=== PATIENT | male | born 1935 | race Hispanic/Latino ===

== ENCOUNTER 2017-07-11 12:45 | Inpatient (IN) | payer OTHER, MEDICARE ==
--- NOTE | 2017-07-11 13:45 | ED PDOC ---
HPI: General Adult Time Seen by Provider: 07/11/17 12:56 Chief Complaint (Nursing): Flu-like Symptoms Chief Complaint (Provider): Flu-like Symptoms History Per: Patient History/Exam Limitations: no limitations Onset/Duration Of Symptoms: Days (x3 days) Current Symptoms Are (Timing): Still Present Additional Complaint(s): 82 y/o male, brought in by EMS, with hypertension and coronary artery disease presents to the ED complaining of fever, cough, and congestion, onset of 3 days. Patient also reports of having productive cough, body aches, sore throat, and is currently taking over the counter cough medicine. He denies any chest pain, difficulty breathing, sick contact, flu shot, or travel. Of note, the patient reports of having [address]. PCP: Jesus Foster Past Medical History Reviewed: Historical Data, Nursing Documentation, Vital Signs Vital Signs: Last Vital Signs Temp 99.3 F 07/11/17 16:47 Pulse 89 07/11/17 16:47 Resp 16 07/11/17 14:38 BP 101/48 L 07/11/17 16:47 Pulse Ox 94 L 07/11/17 17:19 - Medical History PMH: CAD, HTN - Surgical History Surgical History: Coronary Stent (x3) - Family History Family History: States: Unknown Family Hx - Social History Current smoker - smoking cessation education provided: No Ex-Smoker (has not smoked in the last 12 months): No Alcohol: None Drugs: Denies - Home Medications Home Medications: Ambulatory Orders Medication Instructions Recorded Aspirin [Aspirin Chewable] 81 mg PO DAILY 07/11/17 Atorvastatin [Lipitor] 40 mg PO DAILY 07/11/17 Calcium/Vitamin D [Oyster Shell 2,000 mg PO DAILY 07/11/17 Calcium/Vitamin D 500 mg-200 IU] Clopidogrel [Plavix] 75 mg PO DAILY 07/11/17 Enalapril/Hydrochlorothiazide 1 tab PO DAILY 07/11/17 [Enalapril-Hctz 10-25 mg Tablet] Metoprolol Succinate [Toprol XL] 25 mg PO DAILY 07/11/17 - Allergies Allergies/Adverse Reactions: Allergies Allergy/AdvReac Type Severity Reaction Status Date / Time No Known Allergies Allergy Verified 07/11/17 12:54 Review of Systems ROS Statement: Except As Marked, All Systems Reviewed And Found Negative Constitutional: Positive for: Fever, Other (body aches) ENT: Positive for: Throat Pain (sore throat) Cardiovascular: Negative for: Chest Pain Respiratory: Positive for: Cough (productive) Physical Exam - Reviewed Nursing Documentation Reviewed: Yes Vital Signs Reviewed: Yes - Physical Exam Appears: Positive for: Non-toxic, No Acute Distress Head Exam: Positive for: ATRAUMATIC Skin: Positive for: Normal Color, Warm Eye Exam: Positive for: Normal appearance, EOMI, PERRL ENT: Positive for: Normal ENT Inspection Neck: Positive for: Normal, Painless ROM, Supple Cardiovascular/Chest: Positive for: Tachycardia. Negative for: Murmur Respiratory: Positive for: Normal Breath Sounds. Negative for: Respiratory Distress Gastrointestinal/Abdominal: Positive for: Normal Exam, Soft. Negative for: Tenderness Back: Positive for: Normal Inspection Extremity: Positive for: Normal ROM. Negative for: Pedal Edema, Deformity Neurologic/Psych: Positive for: Alert, Oriented. Negative for: Motor/Sensory Deficits - Laboratory Results Result Diagrams: 07/11/17 14:22 07/11/17 14:22 - ECG O2 Sat by Pulse Oximetry: 94 (RA) Pulse Ox Interpretation: Normal Medical Decision Making Medical Decision Making: Time: --13:12 Impression: --Upper Respiratory Infection Differential: --Influenza, Pneumonia, and Strep Throat Plan: --EKG --Chest X-ray --Acetaminophen 650mg PO Reassess CXR reviewed: RLL infiltrate. Labs consistent with SIRS. Dx Sepsis, CAP Admission criteria: High risk with high CURB 65 score and threat to life. Requires admission for supplemental oxygen and IV antibiotics. Scribe Attestation: Documented by Henry Welch acting as a scribe for Dede Ramos MD. Disposition - Clinical Impression Clinical Impression: Pneumonia, Sepsis - Patient ED Disposition Is Patient to be Admitted: Yes Discussed With : Chris Draper Doctor Will See Patient In The: Hospital Counseled Patient/Family Regarding: Studies Performed, Diagnosis - Disposition Disposition Time: 16:20 Condition: FAIR - Pt Status Changed To: Hospital Disposition Of: Inpatient - Admit Certification Admit to Inpatient:: After my assessment, the patient will require hospitalization for at least two midnights. This is because of the severity of symptoms shown, intensity of services needed, and/or the medical risk in this patient being treated as an outpatient. - POA Present On Arrival: None Curb-65 Severity Score - CURB-65 Severity Score Confusion: No Bun >19mg/dl (>7mmol/L): No Respiratory Rate greater than/equal to 30: Yes Systolic BP <90 or Diastolic BP less than/equal 60mmHg: No Age >64: Yes Curb-65 Score: 2 Percentage 30-day mortality: 6.8%
[2017-07-11] MEDS ORDERED: Azithromycin 500 MG in Sodium Chloride 0.9% 250 ML IVPB STA (13:57)
--- NOTE | 2017-07-11 14:22 | RAD ---
HISTORY: fever cough COMPARISON: No prior. TECHNIQUE: Chest PA and lateral FINDINGS: LUNGS: Chronic hyperinflation is appreciated. No focal infiltrate is identified. PLEURA: No significant pleural effusion identified. No pneumothorax apparent. CARDIOVASCULAR: Prominent pulmonary arteries are noted suggesting pulmonary arterial hypertension. There is calcific atherosclerotic disease of the aorta. Heart is normal in size. No CHF is noted. OSSEOUS STRUCTURES: No acute fractures. VISUALIZED UPPER ABDOMEN: Normal. OTHER FINDINGS: None. IMPRESSION: Chronic hyperinflation without focal infiltrate or CHF.
[2017-07-11 14:24] LABS: VENOUS BLOOD GAS BASE EXCESS 5.3 mmol/L (0.0-2.0); VENOUS BLOOD GAS PCO2 49 mmHg (40-60); VENOUS BLOOD GAS PO2 27 mm/Hg (30-55); VENOUS BLOOD PH 7.41 (7.32-7.43)
[2017-07-11 14:29] LABS: BASO # 0.1 K/uL (0.0-0.2); BASO % 0.9 % (0.0-2.0); EOS # 0.1 K/uL (0.0-0.7); EOS % 0.5 % (0.0-4.0); HEMOGLOBIN 11.1 g/dL (12.0-18.0); LYMPH # 0.6 K/uL (1.0-4.3); LYMPH % 3.4 % (20.0-40.0); MEAN CELL VOLUME 91.9 fl (80.0-94.0); MEAN CORPUSCULAR HEMOGLOBIN 30.8 pg (27.0-31.0); MEAN CORPUSCULAR HGB CONC 33.5 g/dL (33.0-37.0); MEAN PLATELET VOLUME 12.9 fl (7.2-11.7); MONO # 1.2 K/uL (0.0-0.8); MONO % 7.2 % (0.0-10.0); NEUT # 14.6 K/uL (1.8-7.0); PLATELET COUNT 91 K/uL (130-400); RBC 3.61 Mil/uL (4.40-5.90); RED CELL DISTRIBUTION WIDTH 15.5 % (11.5-14.5); WHITE BLOOD COUNT 16.6 K/uL (4.8-10.8)
[2017-07-11 14:45] LABS: BLOOD UREA NITROGEN 27 mg/dl (9-20); CALCIUM 9.3 mg/dL (8.4-10.2); GFR AFRICAN-AMERICAN > 60; GFR NON-AFRICAN AMERICAN 58
[2017-07-11] MEDS ORDERED: Sodium Chloride 0.9% 1,000 ML IV STA ×2 (15:09→16:52)
[2017-07-11] MEDS ORDERED: Albuterol-Ipratrop 3 mg / 0.5 (3 ml) UD INH STA (15:09)
[2017-07-11 15:26] LABS: BASOPHIL 1 % (0-2); LYMPHOCYTE 5 % (20-50); MONOCYTE 9 % (0-10); NEUTROPHIL 85 % (42-75); TOTAL CELLS COUNTED 100
[2017-07-11 15:27] LABS: ANISOCYTOSIS SLIGHT; HYPOCHROMIC SLIGHT; PLATELET ESTIMATE DECREASED (NORMAL)
[2017-07-11 15:29] LABS: GIANT PLATELETS PRESENT; LARGE PLATELETS PRESENT; OVALOCYTES SLIGHT
[2017-07-11] MEDS ORDERED: Albuterol-Ipratrop 3 mg / 0.5 (3 ml) UD ONE (15:41)
[2017-07-11] MEDS ORDERED: Albuterol-Ipratrop 3 mg / 0.5 (3 ml) UD INH PRN (18:08)
[2017-07-11] MEDS ORDERED: Promethazine DM 6.25 mg-15 mg/5 ml Syrup PO PRN (18:12)
[2017-07-12 06:28] LABS: BASO # 0.1 K/uL (0.0-0.2); BASO % 0.7 % (0.0-2.0); EOS # 0.1 K/uL (0.0-0.7); EOS % 0.9 % (0.0-4.0); HEMOGLOBIN 10.5 g/dL (12.0-18.0); LYMPH # 2.3 K/uL (1.0-4.3); LYMPH % 16.3 % (20.0-40.0); MEAN CELL VOLUME 94.7 fl (80.0-94.0); MEAN CORPUSCULAR HEMOGLOBIN 30.4 pg (27.0-31.0); MEAN PLATELET VOLUME 13.3 fl (7.2-11.7); MONO # 1.2 K/uL (0.0-0.8); MONO % 8.4 % (0.0-10.0); NEUT # 10.5 K/uL (1.8-7.0); NEUT % 73.7 % (50.0-75.0); RBC 3.46 Mil/uL (4.40-5.90); RED CELL DISTRIBUTION WIDTH 15.7 % (11.5-14.5); WHITE BLOOD COUNT 14.3 K/uL (4.8-10.8)
[2017-07-12 06:34] LABS: ALB/GLOB RATIO 1.1 (1.0-2.1); ALBUMIN 3.5 g/dL (3.5-5.0); ALT/SGPT 29 U/L (21-72); AST/SGOT 21 U/L (17-59); BLOOD UREA NITROGEN 24 mg/dl (9-20); CALCIUM 8.6 mg/dL (8.4-10.2); GFR AFRICAN-AMERICAN > 60; GFR NON-AFRICAN AMERICAN 53
--- NOTE | 2017-07-12 08:01 | CP.PCM.HP ---
History of Present Illness - History of Present Illness History of Present Illness: pt admitted for pna w/ elev wbc and fever. at present pt feels better, less weak. no n/v/d. afebrile. cxr noted pt was for cardiac cath at [place] tomorrow. no cp Present on Admission - Present on Admission Any Indicators Present on Admission: No Review of Systems - Constitutional Constitutional: As Per HPI, Fever - Respiratory Respiratory: As Per HPI, Cough, Wheezing, Chest Congestion Past Patient History - Past Social History Smoking Status: Never Smoked - CARDIAC Hx Hypertension: Yes Other/Comment: with stent x 3 - MUSCULOSKELETAL/RHEUMATOLOGICAL Hx Falls: No - PSYCHIATRIC Hx Substance Use: No - SURGICAL HISTORY Hx Coronary Stent: Yes (x3) - ANESTHESIA Hx Anesthesia: Yes Hx Anesthesia Reactions: No Meds Allergies/Adverse Reactions: Allergies Allergy/AdvReac Type Severity Reaction Status Date / Time No Known Allergies Allergy Verified 07/11/17 12:54 Physical Exam - Constitutional Appears: Well, Non-toxic, No Acute Distress - Head Exam Head Exam: ATRAUMATIC, NORMAL INSPECTION, NORMOCEPHALIC - Eye Exam Eye Exam: EOMI, Normal appearance, PERRL Pupil Exam: NORMAL ACCOMODATION, PERRL - ENT Exam ENT Exam: Mucous Membranes Moist, Normal Exam - Neck Exam Neck exam: Positive for: Normal Inspection - Respiratory Exam Respiratory Exam: Clear to Auscultation Bilateral, NORMAL BREATHING PATTERN - Cardiovascular Exam Cardiovascular Exam: REGULAR RHYTHM, RRR, +S1, +S2 - GI/Abdominal Exam GI & Abdominal Exam: Normal Bowel Sounds, Soft. absent: Tenderness - Extremities Exam Extremities exam: Positive for: full ROM, normal capillary refill, normal inspection, pedal pulses present - Back Exam Back exam: NORMAL INSPECTION - Neurological Exam Neurological exam: Alert, CN II-XII Intact, Normal Gait, Oriented x3, Reflexes Normal - Psychiatric Exam Psychiatric exam: Normal Affect, Normal Mood - Skin Skin Exam: Dry, Intact, Normal Color, Warm Results - Vital Signs Recent Vital Signs: Last Vital Signs Temp 98.7 F 07/12/17 00:49 Pulse 84 07/12/17 00:30 Resp 19 07/12/17 00:30 BP 114/64 07/12/17 00:30 Pulse Ox 95 07/12/17 00:30 - Labs Result Diagrams: 07/12/17 06:05 07/12/17 06:05 Labs: Laboratory Results - last 24 hr 07/11/17 07/11/17 07/11/17 13:20 14:15 14:22 WBC RBC Hgb Hct MCV MCH MCHC RDW Plt Count MPV Neut % (Auto) Lymph % (Auto) [place] % (Auto) Eos % (Auto) Baso % (Auto) Neut # Lymph # [place]vier # Eos # Baso # Neutrophils % (Manual) Lymphocytes % (Manual) Monocytes % (Manual) Basophils % (Manual) Platelet Estimate Large Platelets Giant Platelets Hypochromasia (manual) Anisocytosis (manual) Ovalocytes pO2 27 L VBG pH 7.41 VBG pCO2 49 VBG HCO3 27.8 VBG Total CO2 32.6 H VBG O2 Sat (Calc) 62.2 VBG Base Excess 5.3 H VBG Potassium 4.4 Sodium 136.0 140 Chloride 104.0 101 Glucose 116 H Lactate 1.7 FiO2 21.0 Potassium 4.4 Carbon Dioxide 30 Anion Gap 13 BUN 27 H Creatinine 1.2 Est GFR ( Amer) > 60 Est GFR (Non-Af Amer) 58 Random Glucose 112 H Calcium 9.3 Total Bilirubin AST ALT Alkaline Phosphatase Total Protein Albumin Globulin Albumin/Globulin Ratio Venous Blood Potassium 4.4 Influenza Typ A,B (EIA) Negative for flu a/b 07/11/17 07/12/17 07/12/17 14:22 06:05 06:05 WBC 16.6 H 14.3 H RBC 3.61 L 3.46 L Hgb 11.1 L 10.5 L Hct 33.2 L 32.8 L MCV 91.9 94.7 H D MCH 30.8 30.4 MCHC 33.5 32.0 L RDW 15.5 H 15.7 H Plt Count 91 L 92 L MPV 12.9 H 13.3 H Neut % (Auto) 88.0 H 73.7 Lymph % (Auto) 3.4 L 16.3 L Sevier % (Auto) 7.2 8.4 Eos % (Auto) 0.5 0.9 Baso % (Auto) 0.9 0.7 Neut # 14.6 H 10.5 H Lymph # 0.6 L 2.3 Sevier # 1.2 H 1.2 H Eos # 0.1 0.1 Baso # 0.1 0.1 Neutrophils % (Manual) 85 H Lymphocytes % (Manual) 5 L Monocytes % (Manual) 9 Basophils % (Manual) 1 Platelet Estimate Decreased L Large Platelets Present Giant Platelets Present Hypochromasia (manual) Slight Anisocytosis (manual) Slight Ovalocytes Slight pO2 VBG pH VBG pCO2 VBG HCO3 VBG Total CO2 VBG O2 Sat (Calc) VBG Base Excess VBG Potassium Sodium 141 Chloride 102 Glucose Lactate FiO2 Potassium 4.2 Carbon Dioxide 28 Anion Gap 15 BUN 24 H Creatinine 1.3 Est GFR ( Amer) > 60 Est GFR (Non-Af Amer) 53 Random Glucose 102 Calcium 8.6 Total Bilirubin 0.8 AST 21 ALT 29 Alkaline Phosphatase 53 Total Protein 6.7 Albumin 3.5 Globulin 3.1 Albumin/Globulin Ratio 1.1 Venous Blood Potassium Influenza Typ A,B (EIA) Assessment & Plan (1) DVT prophylaxis Assessment and Plan: scd and ae hose asa/plavix lovenox if admitted over 24h Status: Acute (2) Pneumonia Assessment and Plan: rocephin/zithromax duonebs, phenergen am labs noted Status: Acute (3) Sepsis Assessment and Plan: likely early sepsis wbc elev, febrile source-pneumonia Status: Acute Decision To Admit - Pt Status Changed To: Hospital Disposition Of: Inpatient - Admit Certification Admit to Inpatient:: After my assessment, the patient will require hospitalization for at least two midnights. This is because of the severity of symptoms shown, intensity of services needed, and/or the medical risk in this patient being treated as an outpatient. - . Bed Request Type: Med/Surg Admitting Physician: Yfn Nelson
[2017-07-12] MEDS: Azithromycin 500 MG in Sodium Chloride 0.9% 250 ML IVPB SCH (08:35)
[2017-07-12] MEDS: Metoprolol Succinate 25 mg XL Tab PO SCH (08:36)
--- NOTE | 2017-07-12 08:54 | CARD ---
APPROVED REPORT EKG Measurement Heart [id number] <Conclusion> Sinus rhythm with occasional premature ventricular complexes Otherwise normal ECG
[2017-07-12] MEDS: Calcium-Vit D 500 mg-200 Units Tab UD PO SCH (09:35)
[2017-07-12] MEDS ORDERED: Enoxaparin 40 mg Syringe SC SCH (11:30)
[2017-07-12 23:28] VITALS: RESP 20
[2017-07-13 06:33] LABS: HEMOGLOBIN 9.7 g/dL (12.0-18.0); MEAN CELL VOLUME 93.5 fl (80.0-94.0); MEAN CORPUSCULAR HEMOGLOBIN 30.7 pg (27.0-31.0); MEAN CORPUSCULAR HGB CONC 32.8 g/dL (33.0-37.0); RBC 3.15 Mil/uL (4.40-5.90); RED CELL DISTRIBUTION WIDTH 15.6 % (11.5-14.5); WHITE BLOOD COUNT 9.2 K/uL (4.8-10.8)
[2017-07-13 06:55] LABS: BLOOD UREA NITROGEN 20 mg/dl (9-20); CALCIUM 8.4 mg/dL (8.4-10.2); GFR AFRICAN-AMERICAN > 60; GFR NON-AFRICAN AMERICAN > 60
--- NOTE | 2017-07-13 07:59 | CP.PCM.DIS ---
Provider - Provider Date of Admission: 07/11/17 16:24 Attending physician: Yfn Nelson MD Time Spent in preparation of Discharge (in minutes): 20 Diagnosis - Discharge Diagnosis (1) DVT prophylaxis Status: Acute (2) Pneumonia Status: Acute (3) Sepsis Status: Acute Hospital Course - Lab Results Lab Results: Micro Results 07/11/17 14:03 Blood Blood Culture - Preliminary NO GROWTH AFTER 24 HOURS 07/11/17 15:33 Blood Blood Culture - Preliminary NO GROWTH AFTER 24 HOURS Most Recent Lab Values WBC 9.2 K/uL (4.8-10.8) 07/13/17 06:05 RBC 3.15 Mil/uL (4.40-5.90) L 07/13/17 06:05 Hgb 9.7 g/dL (12.0-18.0) L 07/13/17 06:05 Hct 29.5 % (35.0-51.0) L 07/13/17 06:05 MCV 93.5 fl (80.0-94.0) 07/13/17 06:05 MCH 30.7 pg (27.0-31.0) 07/13/17 06:05 MCHC 32.8 g/dL (33.0-37.0) L 07/13/17 06:05 RDW 15.6 % (11.5-14.5) H 07/13/17 06:05 Plt Count 67 K/uL (130-400) L D 07/13/17 06:05 MPV 13.3 fl (7.2-11.7) H 07/12/17 06:05 Neut % (Auto) 73.7 % (50.0-75.0) 07/12/17 06:05 Lymph % (Auto) 16.3 % (20.0-40.0) L 07/12/17 06:05 [place] % (Auto) 8.4 % (0.0-10.0) 07/12/17 06:05 Eos % (Auto) 0.9 % (0.0-4.0) 07/12/17 06:05 Baso % (Auto) 0.7 % (0.0-2.0) 07/12/17 06:05 Neut # 10.5 K/uL (1.8-7.0) H 07/12/17 06:05 Lymph # 2.3 K/uL (1.0-4.3) 07/12/17 06:05 [place] # 1.2 K/uL (0.0-0.8) H 07/12/17 06:05 Eos # 0.1 K/uL (0.0-0.7) 07/12/17 06:05 Baso # 0.1 K/uL (0.0-0.2) 07/12/17 06:05 Neutrophils % (Manual) 85 % (42-75) H 07/11/17 14:22 Lymphocytes % (Manual) 5 % (20-50) L 07/11/17 14:22 Monocytes % (Manual) 9 % (0-10) 07/11/17 14:22 Basophils % (Manual) 1 % (0-2) 07/11/17 14:22 Platelet Estimate Decreased (NORMAL) L 07/11/17 14:22 Large Platelets Present 07/11/17 14:22 Giant Platelets Present 07/11/17 14:22 Hypochromasia (manual) Slight 07/11/17 14:22 Anisocytosis (manual) Slight 07/11/17 14:22 Ovalocytes Slight 07/11/17 14:22 pO2 27 mm/Hg (30-55) L 07/11/17 14:15 VBG pH 7.41 (7.32-7.43) 07/11/17 14:15 VBG pCO2 49 mmHg (40-60) 07/11/17 14:15 VBG HCO3 27.8 mmol/L 07/11/17 14:15 VBG Total CO2 32.6 mmol/L (22-28) H 07/11/17 14:15 VBG O2 Sat (Calc) 62.2 % (40-65) 07/11/17 14:15 VBG Base Excess 5.3 mmol/L (0.0-2.0) H 07/11/17 14:15 VBG Potassium 4.4 mmol/L (3.6-5.2) 07/11/17 14:15 Sodium 136.0 mmol/L (132-148) 07/11/17 14:15 Chloride 104.0 mmol/L (98-107) 07/11/17 14:15 Glucose 116 mg/dL (75-110) H 07/11/17 14:15 Lactate 1.7 mmol/L (0.7-2.1) 07/11/17 14:15 FiO2 21.0 % 07/11/17 14:15 Sodium 139 mmol/l (132-148) 07/13/17 06:05 Potassium 3.9 MMOL/L (3.6-5.0) 07/13/17 06:05 Chloride 102 mmol/L (98-107) 07/13/17 06:05 Carbon Dioxide 29 mmol/L (22-30) 07/13/17 06:05 Anion Gap 12 (10-20) 07/13/17 06:05 BUN 20 mg/dl (9-20) 07/13/17 06:05 Creatinine 1.1 mg/dl (0.8-1.5) 07/13/17 06:05 Est GFR ( Amer) > 60 07/13/17 06:05 Est GFR (Non-Af Amer) > 60 07/13/17 06:05 Random Glucose 97 mg/dL (75-110) 07/13/17 06:05 Calcium 8.4 mg/dL (8.4-10.2) 07/13/17 06:05 Total Bilirubin 0.8 mg/dl (0.2-1.3) 07/12/17 06:05 AST 21 U/L (17-59) 07/12/17 06:05 ALT 29 U/L (21-72) 07/12/17 06:05 Alkaline Phosphatase 53 U/L (38-126) 07/12/17 06:05 Total Protein 6.7 G/DL (6.3-8.2) 07/12/17 06:05 Albumin 3.5 g/dL (3.5-5.0) 07/12/17 06:05 Globulin 3.1 gm/dL (2.2-3.9) 07/12/17 06:05 Albumin/Globulin Ratio 1.1 (1.0-2.1) 07/12/17 06:05 Venous Blood Potassium 4.4 mmol/L (3.6-5.2) 07/11/17 14:15 Influenza Typ A,B (EIA) Negative for flu a/b (NEGATIVE) 07/11/17 13:20 Discharge Exam - Head Exam Head Exam: ATRAUMATIC, NORMAL INSPECTION, NORMOCEPHALIC - Eye Exam Eye Exam: EOMI, Normal appearance, PERRL Pupil Exam: NORMAL ACCOMODATION, PERRL - Respiratory Exam Respiratory Exam: Clear to PA & Lateral, NORMAL BREATHING PATTERN, UNREMARKABLE - Cardiovascular Exam Cardiovascular Exam: REGULAR RHYTHM, RRR, +S1, +S2 - GI/Abdominal Exam GI & Abdominal Exam: Normal Bowel Sounds, Soft, Unremarkable - Extremities Exam Extremities exam: full ROM, normal capillary refill, normal inspection, pedal pulses present - Neurological Exam Neurological exam: Alert, CN II-XII Intact, Normal Gait, Oriented x3, Reflexes Normal - Psychiatric Exam Psychiatric exam: Normal Affect, Normal Mood - Skin Skin Exam: Dry, Intact, Normal Color, Warm Discharge Plan - Follow Up Plan Condition: FAIR Disposition: HOME/ ROUTINE Instructions: How To Wash Your Hands (GEN), Pneumonia (GEN) Additional Instructions: pt doing well, no complaints. no f/c, n/v/d. still w/ mild cough. bw noted. hgb and plt around pts baseline. bun/cr normalized. pt requesting to go home. final dx-pna, sirs f/u rmg 2 days,r wiliam prn, meds per med rec
[2017-07-13 08:15] VITALS: BP 147/68; PULSE 82; TEMP 98.7; O2SAT 91
[2017-07-13] MEDS: Metoprolol Succinate 25 mg XL Tab PO SCH (09:13)
[2017-07-13] MEDS: Calcium-Vit D 500 mg-200 Units Tab UD PO SCH (09:13)
[2017-07-13] MEDS: Azithromycin 500 MG in Sodium Chloride 0.9% 250 ML IVPB SCH (10:48)
== END 2017-07-13 12:32 | disposition home or self-care (01) | DRG 195 ==
LOC: H.ER 12:45 → H.ERHOLD 16:24 → H.MEDSURG1 17:43
PROVIDERS: ADMIT Family Medicine; ATTEND Family Medicine
DX: J18.9 Pneumonia, unspecified organism (principal); I10 Essential (primary) hypertension; I25.10 Atherosclerotic heart disease of native coronary artery without angina pectoris; Z95.5 Presence of coronary angioplasty implant and graft

== ENCOUNTER 2017-07-16 08:47 | Inpatient (IN) | payer MEDICARE, OTHER ==
[2017-07-16 09:04] VITALS: BMI 22.8
[2017-07-16] MEDS ORDERED: Albuterol-Ipratrop 3 mg / 0.5 (3 ml) UD INH STA ×3 (09:46→09:49)
[2017-07-16 10:08] LABS: ABG ALLEN TEST YES; ARTERIAL BLOOD GAS O2 SAT 99.3 % (95-98); ARTERIAL BLOOD GAS PCO2 50 mm/Hg (35-45); ARTERIAL BLOOD GAS PH 7.43 (7.35-7.45); ARTERIAL BLOOD GAS PO2 141 mm/Hg (80-100); ARTERIAL BLOOD GAS TCO2 34.7 mmol/L (22-28)
--- NOTE | 2017-07-16 10:10 | ED PDOC ---
HPI: SOB/CHF/COPD Time Seen by Provider: 07/16/17 09:02 Chief Complaint (Nursing): Shortness Of Breath Chief Complaint (Provider): Shortness Of Breath History Per: Patient History/Exam Limitations: no limitations Onset/Duration Of Symptoms: Days Current Symptoms Are (Timing): Still Present Current Respiratory Medications: See Home Med List Additional Complaint(s): 82 year old male presents to the emergency department with a complaint of feeling shortness of breath especially on exertion associated with generalized weakness and some weight loss over the past few weeks. Patient has a past medical history of coronary artery disease (CAD) and was admitted within this facility for pneumonia on 07/11/2017 and discharged home with medication on 03/2018. Reports he cannot catch his breath and admits to not finished prescribed medication that were given to him after he was discharge. Patient was seen by someone at [place] yesterday, 07/15/2017 and given another prescription for Medrol Dose pack but has not started that one either. Denies fever, chills, or chest pain. Past Medical History Reviewed: Historical Data, Nursing Documentation, Vital Signs Vital Signs: Last Vital Signs Temp 98 F 07/16/17 09:11 Pulse 97 H 07/16/17 09:11 Resp 20 07/16/17 09:11 BP 132/67 07/16/17 09:11 Pulse Ox 100 07/16/17 12:19 - Medical History PMH: CAD, HTN, Pneumonia - Surgical History Surgical History: Coronary Stent (x3) - Family History Family History: States: Unknown Family Hx - Social History Current smoker - smoking cessation education provided: No Ex-Smoker (has not smoked in the last 12 months): Yes (30 packs a year) Alcohol: None Drugs: Denies - Home Medications Home Medications: Ambulatory Orders Medication Instructions Recorded Aspirin [Aspirin Chewable] 81 mg PO DAILY 07/11/17 Atorvastatin [Lipitor] 40 mg PO DAILY 07/11/17 Calcium/Vitamin D [Oyster Shell 2,000 mg PO DAILY 07/11/17 Calcium/Vitamin D 500 mg-200 IU] Clopidogrel [Plavix] 75 mg PO DAILY 07/11/17 Enalapril/Hydrochlorothiazide 1 tab PO DAILY 07/11/17 [Enalapril-Hctz 10-25 mg Tablet] Metoprolol Succinate [Toprol XL] 25 mg PO DAILY 07/11/17 Albuterol/Ipratropium [Duoneb 3 3 ml INH RQ4 PRN #100 neb 07/13/17 mg/0.5 mg (3 ml) UD] Amoxicillin/Clavulanate [Augmentin 1 tab PO BID #10 tab 07/13/17 875 MG-125 MG] Azithromycin [Zithromax] 250 mg PO DAILY #3 tab 07/13/17 Promethazine DM [Phenergan DM 5 ml PO Q6 PRN #250 ml 07/13/17 Syrup] - Allergies Allergies/Adverse Reactions: Allergies Allergy/AdvReac Type Severity Reaction Status Date / Time No Known Allergies Allergy Verified 07/11/17 12:54 Review of Systems ROS Statement: Except As Marked, All Systems Reviewed And Found Negative (As per HPI, otherwise negative) Constitutional: Positive for: Weakness (generalized), Weight loss. Negative for : Fever, Chills Cardiovascular: Negative for: Chest Pain Respiratory: Positive for: Shortness of Breath, SOB with Exertion Physical Exam - Reviewed Nursing Documentation Reviewed: Yes Vital Signs Reviewed: Yes - Physical Exam Appears: Positive for: Non-toxic, No Acute Distress Head Exam: Positive for: NORMAL INSPECTION, NORMOCEPHALIC Skin: Positive for: Normal Color, Warm, Dry Cardiovascular/Chest: Positive for: Murmur (S1 S2 systolic murmur). Negative for: Regular Rate, Rhythm Respiratory: Positive for: Decreased Breath Sounds (Bilaterally), Crackles ( faint crackles at the left base), Wheezing (Expiratory whezzing), Other (Mildly tachypneic with moderate labored breathing). Negative for: Normal Breath Sounds Gastrointestinal/Abdominal: Positive for: Normal Exam, Soft. Negative for: Tenderness Extremity: Positive for: Normal ROM. Negative for: Tenderness, Pedal Edema Neurologic/Psych: Positive for: Alert, Oriented (x3) - Laboratory Results Result Diagrams: 07/16/17 09:52 07/16/17 09:52 - ECG O2 Sat by Pulse Oximetry: 100 (Oxygen) Pulse Ox Interpretation: Normal Medical Decision Making Medical Decision Making: Time: 945 Initial Impression: Shortness of breath and chronic obstructive pulmonary disease (COPD) exacerbation Initial Plan: --ABG Shock Panel --EKG --B-Type Natriuretic Peptide --CMP --Troponin I --CBC w. diff --Chest x-ray --Duoneb 3 ml INH --Duoneb 3 ml INH --Duoneb 3 ml INH --Methylprednisolone 125 mg IVP --Reevaluation Time: 951 --Troponin I: < 0.0120 Scribe~Attestation: Documented by Soila Medina, acting as a scribe for Cely Parks MD. Provider Scribe~Attestation: All medical record entries made by the Scribe were at my direction and personally dictated by me. I have reviewed the chart and agree that the record accurately reflects my personal performance of the history, physical exam, medical decision making, and the department course for this patient. I have also personally directed, reviewed, and agree with the discharge instructions and disposition. patient is still tachypnea and labored after IV solumedrol and 3 duonebs. He tried to walk but had dyspnea. Needs to be admitted for steroids and nebs. Case d/w Chris Draper Disposition - Clinical Impression Clinical Impression: COPD exacerbation - Patient ED Disposition Is Patient to be Admitted: Yes Doctor Will See Patient In The: Hospital Counseled Patient/Family Regarding: Diagnosis, Need For Followup - Disposition Disposition: Routine/Home Disposition Time: 13:29 Condition: GUARDED Forms: Sara Campbell ([place])
[2017-07-16] MEDS ORDERED: Albuterol-Ipratrop 3 mg / 0.5 (3 ml) UD ONE (10:11)
[2017-07-16 10:14] LABS: ALB/GLOB RATIO 1.1 (1.0-2.1); ALBUMIN 3.5 g/dL (3.5-5.0); ALT/SGPT 31 U/L (21-72); AST/SGOT 21 U/L (17-59); BASO % 0.5 % (0.0-2.0); BLOOD UREA NITROGEN 24 mg/dl (9-20); CALCIUM 8.8 mg/dL (8.4-10.2); EOS % 0.5 % (0.0-4.0); GFR AFRICAN-AMERICAN > 60; GFR NON-AFRICAN AMERICAN > 60; HEMOGLOBIN 10.2 g/dL (12.0-18.0); LYMPH # 0.9 K/uL (1.0-4.3); LYMPH % 11.6 % (20.0-40.0); MEAN CELL VOLUME 93.7 fl (80.0-94.0); MEAN CORPUSCULAR HEMOGLOBIN 30.3 pg (27.0-31.0); MEAN CORPUSCULAR HGB CONC 32.3 g/dL (33.0-37.0); MEAN PLATELET VOLUME 12.2 fl (7.2-11.7); MONO # 0.9 K/uL (0.0-0.8); MONO % 11.3 % (0.0-10.0); NEUT # 6.1 K/uL (1.8-7.0); NEUT % 76.1 % (50.0-75.0); RBC 3.39 Mil/uL (4.40-5.90); RED CELL DISTRIBUTION WIDTH 15.8 % (11.5-14.5)
[2017-07-16 10:25] LABS: B-TYPE NATRIURETIC PEPTIDE 321 pg/ml (0-900)
--- NOTE | 2017-07-16 14:40 | RAD ---
PROCEDURE: CHEST RADIOGRAPH, 1 VIEW. Portable study 10:15 HISTORY: short of breath COMPARISON: None available. FINDINGS: LUNGS: Clear. PLEURA: No pneumothorax or pleural fluid seen. CARDIOVASCULAR: No radiographic findings to suggest acute or significant cardiovascular disease. Dilated main pulmonary arteries consistent with pulmonary arterial hypertension. OSSEOUS STRUCTURES: No significant abnormalities. VISUALIZED UPPER ABDOMEN: Normal. OTHER FINDINGS: None. IMPRESSION: No active disease. No acute/significant interval changes. Concordant results with the preliminary interpretation rendered by the emergency department physician procedure.
[2017-07-16] MEDS: Amoxicillin-Clav 875-125 mg Tab PO SCH (18:41)
[2017-07-16] MEDS: Promethazine DM 6.25 mg-15 mg/5 ml Syrup PO PRN (21:52)
[2017-07-16] MEDS: Albuterol-Ipratrop 3 mg / 0.5 (3 ml) UD INH PRN (23:58)
[2017-07-17] MEDS: Albuterol-Ipratrop 3 mg / 0.5 (3 ml) UD INH PRN ×4 (08:05→23:40)
[2017-07-17 08:23] LABS: BASO % 0.1 % (0.0-2.0); HEMOGLOBIN 9.8 g/dL (12.0-18.0); LYMPH # 0.4 K/uL (1.0-4.3); LYMPH % 5.8 % (20.0-40.0); MEAN CELL VOLUME 91.9 fl (80.0-94.0); MEAN CORPUSCULAR HEMOGLOBIN 30.6 pg (27.0-31.0); MEAN CORPUSCULAR HGB CONC 33.3 g/dL (33.0-37.0); MEAN PLATELET VOLUME 11.9 fl (7.2-11.7); MONO # 0.7 K/uL (0.0-0.8); MONO % 9.4 % (0.0-10.0); NEUT # 6.5 K/uL (1.8-7.0); NEUT % 84.7 % (50.0-75.0); NRBC % 0.1 % (0.0-0.0); PLATELET COUNT 67 K/uL (130-400); RBC 3.18 Mil/uL (4.40-5.90); RED CELL DISTRIBUTION WIDTH 15.2 % (11.5-14.5); WHITE BLOOD COUNT 7.7 K/uL (4.8-10.8)
[2017-07-17 08:37] LABS: ALB/GLOB RATIO 1.1 (1.0-2.1); ALBUMIN 3.3 g/dL (3.5-5.0); ALT/SGPT 22 U/L (21-72); AST/SGOT 20 U/L (17-59); BLOOD UREA NITROGEN 26 mg/dl (9-20); CALCIUM 8.9 mg/dL (8.4-10.2); GFR AFRICAN-AMERICAN > 60; GFR NON-AFRICAN AMERICAN > 60
[2017-07-17] MEDS: Promethazine DM 6.25 mg-15 mg/5 ml Syrup PO PRN ×4 (08:47→23:44)
[2017-07-17] MEDS: Calcium-Vit D 500 mg-200 Units Tab UD PO SCH (08:47)
[2017-07-17] MEDS: Metoprolol Succinate 25 mg XL Tab PO SCH (08:47)
[2017-07-17] MEDS: Amoxicillin-Clav 875-125 mg Tab PO SCH ×2 (08:47→16:10)
[2017-07-17] MEDS ORDERED: Patient's Own Med (Enalapril/Hydrochlorothiazide [Enalapril-Hctz 10-25 Mg Tablet] 1 TAB) PO SCH (09:00)
--- NOTE | 2017-07-17 10:09 | CP.PCM.HP ---
History of Present Illness - History of Present Illness History of Present Illness: pt admitted for dyspnea on exertion/copd exacerbation. at present w/ cough- nonproductive. no f/c, n/v/d. states gets tired easily. imaging nad bw noted. Present on Admission - Present on Admission Any Indicators Present on Admission: No Review of Systems - Respiratory Respiratory: As Per HPI, Cough, Dyspnea on Exertion, Chest Congestion Past Patient History - Past Medical History & Family History Past Medical History?: Yes - Past Social History Smoking Status: Never Smoked - CARDIAC Hx Cardiac Disorders: Yes (HTN, CAD, CARDIAC STENTS x3) - PULMONARY Hx Pneumonia: Yes - MUSCULOSKELETAL/RHEUMATOLOGICAL Hx Falls: No - PSYCHIATRIC Hx Substance Use: No - SURGICAL HISTORY Hx Coronary Stent: Yes (x3) - ANESTHESIA Hx Anesthesia: Yes Hx Anesthesia Reactions: No Meds Allergies/Adverse Reactions: Allergies Allergy/AdvReac Type Severity Reaction Status Date / Time No Known Allergies Allergy Verified 07/11/17 12:54 Physical Exam - Constitutional Appears: Well, Non-toxic, No Acute Distress - Head Exam Head Exam: ATRAUMATIC, NORMAL INSPECTION, NORMOCEPHALIC - Eye Exam Eye Exam: EOMI, Normal appearance, PERRL Pupil Exam: NORMAL ACCOMODATION, PERRL - ENT Exam ENT Exam: Mucous Membranes Moist, Normal Exam - Neck Exam Neck exam: Positive for: Normal Inspection - Respiratory Exam Respiratory Exam: NORMAL BREATHING PATTERN Additional comments: congestion in all huang. good air entry - Cardiovascular Exam Cardiovascular Exam: REGULAR RHYTHM, RRR, +S1, +S2 - GI/Abdominal Exam GI & Abdominal Exam: Normal Bowel Sounds, Soft. absent: Tenderness - Extremities Exam Extremities exam: Positive for: full ROM, normal capillary refill, normal inspection, pedal pulses present - Back Exam Back exam: NORMAL INSPECTION - Neurological Exam Neurological exam: Alert, CN II-XII Intact, Normal Gait, Oriented x3, Reflexes Normal - Psychiatric Exam Psychiatric exam: Normal Affect, Normal Mood - Skin Skin Exam: Dry, Intact, Normal Color, Warm Results - Vital Signs Recent Vital Signs: Last Vital Signs Temp 97.7 F 07/17/17 08:21 Pulse 98 H 07/17/17 08:47 Resp 20 07/17/17 08:21 BP 132/61 07/17/17 08:47 Pulse Ox 98 07/17/17 08:21 - Labs Result Diagrams: 07/17/17 08:03 07/17/17 08:03 Labs: Laboratory Results - last 24 hr 07/16/17 07/16/17 07/16/17 09:48 09:52 09:52 WBC 8.0 RBC 3.39 L Hgb 10.2 L Hct 31.7 L MCV 93.7 MCH 30.3 MCHC 32.3 L RDW 15.8 H Plt Count 66 L MPV 12.2 H Neut % (Auto) 76.1 H Lymph % (Auto) 11.6 L Dent % (Auto) 11.3 H Eos % (Auto) 0.5 Baso % (Auto) 0.5 Neut # 6.1 Lymph # 0.9 L Dent # 0.9 H Eos # 0.0 Baso # 0.0 pCO2 50 H pO2 141 H HCO3 31.0 H ABG pH 7.43 ABG Total CO2 34.7 H ABG O2 Saturation 99.3 H ABG Base Excess 7.8 H Terrell Test Yes ABG Potassium 4.3 A-a O2 Difference 510.0 Sodium 135.0 139 Chloride 102.0 97 L Glucose 110 Lactate 0.5 L FiO2 100.0 Potassium 4.3 Carbon Dioxide 32 H Anion Gap 14 BUN 24 H Creatinine 1.1 Est GFR ( Amer) > 60 Est GFR (Non-Af Amer) > 60 Random Glucose 110 Calcium 8.8 Total Bilirubin 0.7 AST 21 ALT 31 Alkaline Phosphatase 60 Troponin I < 0.0120 NT-Pro-B Natriuret Pep 321 Total Protein 6.7 Albumin 3.5 Globulin 3.2 Albumin/Globulin Ratio 1.1 Arterial Blood Potassium 4.3 07/17/17 07/17/17 08:03 08:03 WBC 7.7 RBC 3.18 L Hgb 9.8 L Hct 29.2 L MCV 91.9 MCH 30.6 MCHC 33.3 RDW 15.2 H Plt Count 67 L MPV 11.9 H Neut % (Auto) 84.7 H Lymph % (Auto) 5.8 L [place] % (Auto) 9.4 Eos % (Auto) 0.0 Baso % (Auto) 0.1 Neut # 6.5 Lymph # 0.4 L Dent # 0.7 Eos # 0.0 Baso # 0.0 pCO2 pO2 HCO3 ABG pH ABG Total CO2 ABG O2 Saturation ABG Base Excess Terrell Test ABG Potassium A-a O2 Difference Sodium 137 Chloride 96 L Glucose Lactate FiO2 Potassium 5.0 Carbon Dioxide 34 H Anion Gap 12 BUN 26 H Creatinine 1.0 Est GFR ( Amer) > 60 Est GFR (Non-Af Amer) > 60 Random Glucose 125 H Calcium 8.9 Total Bilirubin 0.5 AST 20 ALT 22 Alkaline Phosphatase 54 Troponin I NT-Pro-B Natriuret Pep Total Protein 6.4 Albumin 3.3 L Globulin 3.1 Albumin/Globulin Ratio 1.1 Arterial Blood Potassium Assessment & Plan (1) COPD exacerbation Assessment and Plan: duonebs o2 prn mucinex cont outpt anbx Status: Acute (2) DVT prophylaxis Assessment and Plan: scd and ae hose ambulation lovenox if admitted over 24h Status: Acute (3) Pneumonia Assessment and Plan: cont augmentin/zithromax phenergen/mucinex duonebs Status: Acute Decision To Admit - Pt Status Changed To: Hospital Disposition Of: Observation - . Bed Request Type: Med/Surg Admitting Physician: Yfn Nelson
--- NOTE | 2017-07-17 13:34 | CARD ---
APPROVED REPORT EKG Measurement Heart [id number] <Conclusion> Sinus rhythm with occasional premature ventricular complexes Otherwise normal ECG motion artefact present
[2017-07-17 14:17] LABS: BANDS 14 % (0-2); EOSINOPHIL 1 % (0-7); MONOCYTE 4 % (0-10); NEUTROPHIL 81 % (42-75); TOTAL CELLS COUNTED 100
[2017-07-17 14:18] LABS: GIANT PLATELETS PRESENT; LARGE PLATELETS PRESENT
[2017-07-17 14:19] LABS: PLATELET ESTIMATE SLIGHTLY DECREASED (NORMAL)
[2017-07-17 14:36] LABS: OVALOCYTES SLIGHT; STOMATOCYTES SLIGHT; TEARDROP CELLS SLIGHT
[2017-07-17 14:37] LABS: ANISOCYTOSIS SLIGHT; POIKILOCYTOSIS SLIGHT
[2017-07-17 14:38] LABS: TOXIC GRANULATION PRESENT
[2017-07-17 15:52] LABS: LYMPHOCYTE 0 % (20-50)
[2017-07-18 00:11] VITALS: O2SAT 97
[2017-07-18 07:38] LABS: BASO % 0.2 % (0.0-2.0); HEMOGLOBIN 9.2 g/dL (12.0-18.0); LYMPH # 0.9 K/uL (1.0-4.3); LYMPH % 7.8 % (20.0-40.0); MEAN CELL VOLUME 92.2 fl (80.0-94.0); MEAN CORPUSCULAR HEMOGLOBIN 30.2 pg (27.0-31.0); MEAN CORPUSCULAR HGB CONC 32.8 g/dL (33.0-37.0); MEAN PLATELET VOLUME 12.8 fl (7.2-11.7); MONO # 1.2 K/uL (0.0-0.8); MONO % 9.9 % (0.0-10.0); NEUT # 9.8 K/uL (1.8-7.0); NEUT % 82.1 % (50.0-75.0); RBC 3.03 Mil/uL (4.40-5.90); RED CELL DISTRIBUTION WIDTH 15.4 % (11.5-14.5); WHITE BLOOD COUNT 11.9 K/uL (4.8-10.8)
[2017-07-18 08:22] LABS: ALB/GLOB RATIO 0.9 (1.0-2.1); ALT/SGPT 30 U/L (21-72); AST/SGOT 29 U/L (17-59); BLOOD UREA NITROGEN 32 mg/dl (9-20); CALCIUM 8.8 mg/dL (8.4-10.2); GFR AFRICAN-AMERICAN > 60; GFR NON-AFRICAN AMERICAN 58
[2017-07-18 08:23] VITALS: BP 111/63; PULSE 70; RESP 20; TEMP 98.2
[2017-07-18] MEDS: Promethazine DM 6.25 mg-15 mg/5 ml Syrup PO PRN ×2 (08:36→15:28)
[2017-07-18] MEDS: Metoprolol Succinate 25 mg XL Tab PO SCH (08:36)
[2017-07-18] MEDS: Amoxicillin-Clav 875-125 mg Tab PO SCH (08:36)
[2017-07-18] MEDS: Calcium-Vit D 500 mg-200 Units Tab UD PO SCH (08:36)
[2017-07-18] MEDS: Albuterol-Ipratrop 3 mg / 0.5 (3 ml) UD INH PRN ×2 (08:52→15:03)
--- NOTE | 2017-07-18 09:18 | CP.PCM.PN ---
Subjective - Date & Time of Evaluation Date of Evaluation: 07/18/17 Time of Evaluation: 09:18 - Subjective Subjective: doing well, no complaints. no f/c, n/v/d. less cough, still nonproductive. bw noted. more exercise tolerant but still winded easily Objective - Vital Signs/Intake and Output Vital Signs (last 24 hours): Temp Pulse Resp BP Pulse Ox 98.2 F 70 20 111/63 97 07/18/17 08:23 07/18/17 08:36 07/18/17 08:23 07/18/17 08:36 07/18/17 08:23 - Medications Medications: Current Medications Albuterol/Ipratropium (Duoneb 3 Mg/0.5 Mg (3 Ml) Ud) 3 ml INH RQ4 PRN PRN Reason: Shortness of Breath Last Admin: 07/18/17 08:52 Dose: 3 ml Amoxicillin/Clavulanate Potassium (Augmentin 875 Mg-125 Mg Tab) 1 tab PO BID [facility] PRN Reason: Protocol Last Admin: 07/18/17 08:36 Dose: 1 tab Aspirin (Aspirin Chewable) 81 mg PO DAILY [facility] Last Admin: 07/18/17 08:36 Dose: 81 mg Atorvastatin Calcium (Lipitor) 40 mg PO HS [facility] Last Admin: 07/17/17 21:16 Dose: 40 mg Calcium/Vitamin D (Oyster Shell Calcium/Vitamin D 500 Mg-200 Iu) 1 tab PO DAILY [facility] Last Admin: 07/18/17 08:36 Dose: 1 tab Clopidogrel Bisulfate (Plavix) 75 mg PO DAILY [facility] Last Admin: 07/18/17 08:36 Dose: 75 mg Enalapril Maleate (Vasotec) 10 mg PO DAILY [facility] Last Admin: 07/18/17 08:37 Dose: 10 mg Hydrochlorothiazide (Hydrodiuril) 25 mg PO DAILY [facility] Last Admin: 07/18/17 08:38 Dose: 25 mg Metoprolol Succinate (Toprol Xl) 25 mg PO DAILY [facility] Last Admin: 07/18/17 08:36 Dose: 25 mg Prednisone (Prednisone Tab) 50 mg PO DAILY [facility] Last Admin: 07/18/17 08:37 Dose: 50 mg Promethazine HCl/Dextromethorphan (Phenergan Dm Syrup) 5 ml PO Q6 PRN PRN Reason: Cough Last Admin: 07/18/17 08:36 Dose: 5 ml - Labs Labs: 07/18/17 06:30 07/18/17 06:30 - Constitutional Appears: Well, Non-toxic, No Acute Distress - Head Exam Head Exam: ATRAUMATIC, NORMAL INSPECTION, NORMOCEPHALIC - Eye Exam Eye Exam: EOMI, Normal appearance, PERRL Pupil Exam: NORMAL ACCOMODATION, PERRL - ENT Exam ENT Exam: Mucous Membranes Moist, Normal Exam - Neck Exam Neck Exam: Full ROM, Normal Inspection. absent: Lymphadenopathy - Respiratory Exam Respiratory Exam: Clear to Ausculation Bilateral, NORMAL BREATHING PATTERN - Cardiovascular Exam Cardiovascular Exam: REGULAR RHYTHM, RRR, +S1, +S2. absent: Murmur - GI/Abdominal Exam GI & Abdominal Exam: Soft, Normal Bowel Sounds. absent: Tenderness - Rectal Exam Rectal Exam: NORMAL INSPECTION - Extremities Exam Extremities Exam: Full ROM, Normal Capillary Refill, Normal Inspection. absent : Joint Swelling, Pedal Edema - Back Exam Back Exam: NORMAL INSPECTION - Neurological Exam Neurological Exam: Alert, Awake, CN II-XII Intact, Normal Gait, Oriented x3 - Psychiatric Exam Psychiatric exam: Normal Affect, Normal Mood - Skin Skin Exam: Dry, Intact, Normal Color, Warm Assessment and Plan (1) COPD exacerbation Status: Acute (2) DVT prophylaxis Status: Acute (3) Pneumonia Status: Acute - Assessment and Plan (Free Text) Assessment: (1) COPD exacerbation Assessment and Plan: duonebs o2 prn mucinex cont outpt anbx doing well, ?? dc today Status: Acute (2) DVT prophylaxis Assessment and Plan: scd and ae hose ambulation lovenox if admitted over 24h Status: Acute (3) Pneumonia Assessment and Plan: cont augmentin/zithromax phenergen/mucinex duonebs Status: Acute
--- NOTE | 2017-07-19 17:31 | CP.PCM.DIS ---
Provider - Provider Date of Admission: 07/16/17 13:34 Attending physician: Yfn Nelson MD Time Spent in preparation of Discharge (in minutes): 15 Diagnosis - Discharge Diagnosis (1) COPD exacerbation Status: Acute (2) DVT prophylaxis Status: Acute (3) Pneumonia Status: Acute Hospital Course - Lab Results Lab Results: Most Recent Lab Values WBC 11.9 K/uL (4.8-10.8) H D 07/18/17 06:30 RBC 3.03 Mil/uL (4.40-5.90) L 07/18/17 06:30 Hgb 9.2 g/dL (12.0-18.0) L 07/18/17 06:30 Hct 27.9 % (35.0-51.0) L 07/18/17 06:30 MCV 92.2 fl (80.0-94.0) 07/18/17 06:30 MCH 30.2 pg (27.0-31.0) 07/18/17 06:30 MCHC 32.8 g/dL (33.0-37.0) L 07/18/17 06:30 RDW 15.4 % (11.5-14.5) H 07/18/17 06:30 Plt Count 84 K/uL (130-400) L 07/18/17 06:30 MPV 12.8 fl (7.2-11.7) H 07/18/17 06:30 Neut % (Auto) 82.1 % (50.0-75.0) H 07/18/17 06:30 Lymph % (Auto) 7.8 % (20.0-40.0) L 07/18/17 06:30 [place] % (Auto) 9.9 % (0.0-10.0) 07/18/17 06:30 Eos % (Auto) 0.0 % (0.0-4.0) 07/18/17 06:30 Baso % (Auto) 0.2 % (0.0-2.0) 07/18/17 06:30 Neut # 9.8 K/uL (1.8-7.0) H 07/18/17 06:30 Lymph # 0.9 K/uL (1.0-4.3) L 07/18/17 06:30 [place] # 1.2 K/uL (0.0-0.8) H 07/18/17 06:30 Eos # 0.0 K/uL (0.0-0.7) 07/18/17 06:30 Baso # 0.0 K/uL (0.0-0.2) 07/18/17 06:30 Neutrophils % (Manual) 81 % (42-75) H 07/17/17 08:03 Band Neutrophils % 14 % (0-2) H* 07/17/17 08:03 Lymphocytes % (Manual) 0 % (20-50) L 07/17/17 08:03 Monocytes % (Manual) 4 % (0-10) 07/17/17 08:03 Eosinophils % (Manual) 1 % (0-7) 07/17/17 08:03 Toxic Granulation Present 07/17/17 08:03 Platelet Estimate Slightly decreased (NORMAL) L 07/17/17 08:03 Large Platelets Present 07/17/17 08:03 Giant Platelets Present 07/17/17 08:03 RBC Morphology Normal (NORMAL) 07/17/17 08:03 Poikilocytosis (manual Slight 07/17/17 08:03 Anisocytosis (manual) Slight 07/17/17 08:03 Macrocytosis (manual) Slight 07/17/17 08:03 Tear Drop Cells Slight 07/17/17 08:03 Ovalocytes Slight 07/17/17 08:03 Stomatocytes Slight 07/17/17 08:03 pCO2 50 mm/Hg (35-45) H 07/16/17 09:48 pO2 141 mm/Hg (80-100) H 07/16/17 09:48 HCO3 31.0 mmol/L (21-28) H 07/16/17 09:48 ABG pH 7.43 (7.35-7.45) 07/16/17 09:48 ABG Total CO2 34.7 mmol/L (22-28) H 07/16/17 09:48 ABG O2 Saturation 99.3 % (95-98) H 07/16/17 09:48 ABG Base Excess 7.8 mmol/L (-2.0-3.0) H 07/16/17 09:48 Terrell Test Yes 07/16/17 09:48 ABG Potassium 4.3 mmol/L (3.6-5.2) 07/16/17 09:48 A-a O2 Difference 510.0 mm/Hg 07/16/17 09:48 Sodium 135.0 mmol/L (132-148) 07/16/17 09:48 Chloride 102.0 mmol/L (98-107) 07/16/17 09:48 Glucose 110 mg/dL (75-110) 07/16/17 09:48 Lactate 0.5 mmol/L (0.7-2.1) L 07/16/17 09:48 FiO2 100.0 % 07/16/17 09:48 Sodium 139 mmol/l (132-148) 07/18/17 06:30 Potassium 4.5 MMOL/L (3.6-5.0) 07/18/17 06:30 Chloride 96 mmol/L (98-107) L 07/18/17 06:30 Carbon Dioxide 34 mmol/L (22-30) H 07/18/17 06:30 Anion Gap 14 (10-20) 07/18/17 06:30 BUN 32 mg/dl (9-20) H 07/18/17 06:30 Creatinine 1.2 mg/dl (0.8-1.5) 07/18/17 06:30 Est GFR ( Amer) > 60 07/18/17 06:30 Est GFR (Non-Af Amer) 58 07/18/17 06:30 Random Glucose 98 mg/dL (75-110) 07/18/17 06:30 Calcium 8.8 mg/dL (8.4-10.2) 07/18/17 06:30 Total Bilirubin 0.5 mg/dl (0.2-1.3) 07/18/17 06:30 AST 29 U/L (17-59) 07/18/17 06:30 ALT 30 U/L (21-72) 07/18/17 06:30 Alkaline Phosphatase 47 U/L (38-126) 07/18/17 06:30 Troponin I < 0.0120 ng/mL (0.00-0.120) 07/16/17 09:52 NT-Pro-B Natriuret Pep 321 pg/ml (0-900) 07/16/17 09:52 Total Protein 6.2 G/DL (6.3-8.2) L 07/18/17 06:30 Albumin 3.0 g/dL (3.5-5.0) L 07/18/17 06:30 Globulin 3.2 gm/dL (2.2-3.9) 07/18/17 06:30 Albumin/Globulin Ratio 0.9 (1.0-2.1) L 07/18/17 06:30 Arterial Blood Potassium 4.3 mmol/L (3.6-5.2) 07/16/17 09:48 Discharge Exam - Head Exam Head Exam: ATRAUMATIC, NORMAL INSPECTION, NORMOCEPHALIC Discharge Plan - Follow Up Plan Condition: GUARDED Disposition: HOME/ ROUTINE Instructions: COPD (Chronic Obstructive Pulmonary Disease) (DC) Additional Instructions: per nurse doing well. less dyspnea. no f/c n/v/d. final dx-copd, pna f/u rmg 2 days, rted prn, meds per med rec, no change to meds Referrals: eJsus Foster MD [Staff Provider] - 07/19/17
== END 2017-07-18 16:00 | disposition home or self-care (01) | DRG 194 ==
LOC: H.ER 08:47 → H.ERHOLD 13:34 → OBSVTOIN 13:34 → H.MEDSURG1 17:20
PROVIDERS: ADMIT Family Medicine; ATTEND Family Medicine
PROC: 3E0F7GC Introduction of Other Therapeutic Substance into Respiratory Tract, Via Natural or Artificial Opening (ICD-10-PCS; principal; 2017-07-17)
DX: J18.9 Pneumonia, unspecified organism (principal); J44.0 Chronic obstructive pulmonary disease with (acute) lower respiratory infection; J44.1 Chronic obstructive pulmonary disease with (acute) exacerbation; I10 Essential (primary) hypertension; I25.10 Atherosclerotic heart disease of native coronary artery without angina pectoris; Z87.01 Personal history of pneumonia (recurrent); Z95.5 Presence of coronary angioplasty implant and graft